=== PATIENT | female | born 1990 | race Caucasian/White ===

== ENCOUNTER → 2016-07-27 | Outpatient (CLI) | payer OTHER ==
[~2016-07-27] MED LIST: /ESCI20TA; ABIL5TAB5 PO; ALBU17IN INH; AMBI10TA PO; AMBIEN; ATIV1TAB7 PO; CELE100C; CELE20TA PO; DEPLIN; EFFE75CA75; HYDROXYZINE; KLON0.5T; LEXAPRO; LITH300C PO; MELO7.5T6 PO; PERCOCET PO; PRISTIQ; RISP1TAB41 PO; TRAZODONE; VICO5TAB; VIST50CA; [UNRECOGNIZED DRUG - CODE]; no home meds
== END ==
LOC: M WUC 14:48
PROVIDERS: ATTEND Nurse Practitioner Family
DX: F31.9 Bipolar disorder, unspecified (principal)

== ENCOUNTER → 2016-08-06 | Outpatient (CLI) | payer OTHER | LOC: M LAB 17:10 | PROVIDERS: ATTEND Nurse Practitioner Family | DX: F31.9 Bipolar disorder, unspecified (principal) ==

== ENCOUNTER 2016-10-03 19:25 | Emergency (ER) | payer OTHER ==
[~2016-10-03] VITALS: Ht 157.5 cm; Wt 61.2 kg
[2016-10-03] MEDS ORDERED: CETI10TA PO (19:59)
[2016-10-03] MEDS ORDERED: LORA1TAB12 PO (19:59)
[2016-10-03] MEDS ORDERED: ADV100INH PO (19:59)
[2016-10-03 22:40] VITALS: BP 129/85
[2016-10-03] MEDS ORDERED: PERC5TAB6 PO (23:00)
[2016-10-03] MEDS ORDERED: PERCOCET 5MG/325MG TAB PO ONE (23:00)
== END 2016-10-03 23:11 | disposition home or self-care (01) ==
LOC: M ED 21:17
DX: K08.89 Other specified disorders of teeth and supporting structures (principal); F43.10 Post-traumatic stress disorder, unspecified; F33.9 Major depressive disorder, recurrent, unspecified; G47.00 Insomnia, unspecified; Z79.899 Other long term (current) drug therapy; Z88.8 Allergy status to other drugs, medicaments and biological substances; J30.89 Other allergic rhinitis

== ENCOUNTER → 2017-02-07 | Outpatient (CLI) | payer OTHER ==
[~2017-02-07] MED LIST changes: +ABIL1TAB11 PO; -ABIL5TAB5 PO; +ADV100INH PO; +ALBU83IN INH; +AMOX500C PO; +CETI10TA PO; +FLON1SPR; +HYDRO50TAB PO; +IBUP80TA PO; +LITH150C PO; +LORA1TAB12 PO; -MELO7.5T6 PO; +MELO7.5T7 PO; +MONT10TA2 PO; +PERC5TAB12 PO; -RISP1TAB41 PO; +RISP1TAB42 PO
[2017-02-07 20:26] LABS: LITHIUM LEVEL < 0.20 MEQ/L (0.60-1.20)
== END ==
LOC: M ADAMS 18:25
PROVIDERS: ATTEND Psychiatry & Neurology Psychiatry
DX: Z51.81 Encounter for therapeutic drug level monitoring (principal); Z79.899 Other long term (current) drug therapy; F43.10 Post-traumatic stress disorder, unspecified

== ENCOUNTER 2017-02-10 21:42 | Inpatient (IN) | payer OTHER ==
[~2017-02-10] VITALS: Ht 157.5 cm; Wt 59.0 kg
[~2017-02-10 21:42] MED LIST changes: -ALBU83IN INH; -AMOX500C PO; -FLON1SPR; -HYDRO50TAB PO; -IBUP80TA PO; -LITH150C PO; -MONT10TA2 PO
[2017-02-10] MEDS ORDERED: LITH150C PO (22:08)
[2017-02-10] MEDS ORDERED: ALBU83IN INH (22:08)
[2017-02-10 23:06] LABS: MEAN CORPUSCULAR HEMOGLOBIN 29.5 pg (27.0-33.0); MEAN CORPUSCULAR HGB CONC 34.1 g/dl (32.0-36.5); MEAN CORPUSCULAR VOLUME 86.4 fl (80.0-96.0); WHITE BLOOD COUNT 6.7 K/mm3 (4.0-10.0)
[2017-02-10 23:22] LABS: METHADONE URINE NEGATIVE (NEGATIVE)
[2017-02-10 23:23] LABS: ALBUMIN 4.3 GM/DL (3.2-5.2); ALBUMIN/GLOBULIN RATIO 1.23 (1.00-1.93); ALKALINE PHOSPHATASE 69 U/L (45-117); ALT/SGPT 22 U/L (12-78); ANION GAP 9 MEQ/L (8-16); AST/SGOT 17 U/L (15-37); BILIRUBIN,DIRECT 0.3 MG/DL (0.0-0.2); BLOOD UREA NITROGEN 9 MG/DL (7-18); CALCIUM LEVEL 9.2 MG/DL (8.5-10.1); CARBON DIOXIDE LEVEL 26 MEQ/L (21-32); CHLORIDE LEVEL 107 MEQ/L (98-107); CREATININE FOR GFR 1.02 MG/DL (0.55-1.02); GLOMERULAR FILTRATION RATE > 60.0 (>60); GLUCOSE, FASTING 117 MG/DL (70-105); POTASSIUM SERUM 3.6 MEQ/L (3.5-5.1); SODIUM LEVEL 142 MEQ/L (136-145); TOTAL PROTEIN 7.8 GM/DL (6.4-8.2)
[2017-02-11] MEDS ORDERED: FLON1SPR (00:09)
[2017-02-11] MEDS ORDERED: LITH300C PO (00:09)
[2017-02-11] MEDS ORDERED: MELO7.5T7 PO (00:09)
[2017-02-11] MEDS ORDERED: MONT10TA2 PO (00:09)
[2017-02-11] MEDS ORDERED: ALBU17IN INH (00:10)
[2017-02-11] MEDS ORDERED: traZODone 50 MG TAB PO PRN (00:45)
[2017-02-11] MEDS ORDERED: MOM 30ML SUSPENSION UDC PO PRN (00:45)
[2017-02-11] MEDS ORDERED: zolPIDEM TARTRATE 5 MG TAB PO PRN (00:45)
[2017-02-11] MEDS ORDERED: LORazepam 1 MG TAB PO PRN (00:45)
[2017-02-11] MEDS ORDERED: HALOPERIDOL 5 MG TAB PO PRN (00:45)
[2017-02-11] MEDS ORDERED: MAALOX 30 ML SUSP *UDC PO PRN (00:45)
[2017-02-11] MEDS ORDERED: ALBUTEROL 90 MCG/ACT 8GM HFA INHALER INH PRN (01:00)
[2017-02-11] MEDS ORDERED: ALBUTEROL SULFATE 2.5 MG/0.5 ML INH NEB SOLN NEB PRN (01:00)
[2017-02-11 01:25] VITALS: BP 112/63
[2017-02-11] MEDS: ACETAMINOPHEN TAB 650MG DOSE (2X325MG) PO PRN ×2 (03:05→14:25)
[2017-02-11 07:09] VITALS: BP 107/61
[2017-02-11] MEDS: LITHIUM CARBONATE 300 MG CAP PO SCH ×2 (08:04→21:21)
[2017-02-11] MEDS: NYSTATIN 500,000 U/5 ML SUSP UDC PO SCH ×4 (09:00→21:00)
--- NOTE | 2017-02-11 09:35 | HPEPDOC ---
Medical History and Physical Date of Admission Feb 11, 2017 at 00:38 History and Physical PCP: Jaqueline Valentine NP Attending: Dr Uribe HPI: 26yoF admitted to [facility] for Bipolar disorder, being medically examined today. No acute medical complaints today. Denies any fevers, chills, weakness, fatigue, ALCAR[place], CP, SOB, cough, palpitations, abdominal pain, N/V/D or changes in bowel or bladder habits. PMHx: Depression Anxiety PTSD bipolar disorder OA/ Chronic LBP. Asthma Allergic rhinitis Left submandibular node enlargement. Excision left cervical node 05/23. Reactive node. PSHX: [place] teeth extraction Hx of 05/23 excision left cervical node. Reactive node. SOCHX: Resides in: [facility] Marital Status: Single Kids: 0 Employment: Unemployed Smoking: Denies ETOH: less than 3 drinks per week Illicit Drugs: marijuana nightly. H/O cocaine. IV Drug Use: Denies Tattoos done unprofessionally: Denies FAMHX: Mother: Alive with COPD and HTN Father: Biological father Unknown Siblings: Alive, unknown Unexpected deaths due to medical reasons: None. ROS: As noted in HPI, otherwise 10pt ROS of systems reviewed and remarkable for LMP . PE: GEN: 26yoF, appears stated age. Well-nourished, well developed. No acute distress. Alert and oriented x 3. Pleasant, interactive. HEENT: Normocephalic, atraumatic. Pupils are equal, round, and reactive to light. Extraocular movements are intact. No nystagmus appreciated. Sclera are nonicteric. Conjunctiva without injection. Nose midline. No facial asymmetry. Moist mucous membranes with white exudate noted, also on tongue. Dentition fair. Pharynx pink and moist. Neck supple, trachea midline. No thyromegaly appreciated. CHEST: Regular rate and rhythm, +S1, +S2. LUNGS: Clear to auscultation bilaterally. No wheezes, rales, or rhonchi. Breathing appears symmetric and easy. Patient is speaking in full sentences. No accessory muscle use. ABD: Round, soft, non-tender, non-distended. +Bowel sounds throughout. No rebound or guarding. No costovertebral angle tenderness. EXT: Pulses 2+ bilaterally dorsalis pedis and radial. No lower extremity edema appreciated. SKIN: [place], dry, warm. Capillary refill <2sec. No rashes. NEURO: Alert and oriented x 3. Cranial nerves III-XII are intact. No focal deficits appreciated. EKG: pending. A&P: 26yoF admitted to [facility] for bipolar disorder. 1. Psych. Plan per Psychiatry. EKG on file. 2. Allergic rhinitis. Continue Flonase daily. 3. Chronic LBP. Continue Mobic 7.5 mg daily. 4. Follow up PCP at discharge. 5. Substance abuse. Management as per psychiatry. 6. Asthma. Continue Advair. Continue singulair 10 mg daily. Continue albuterol as needed. 7. Oral candidiasis. Nystatin SS QID x 10 days. Ensure Pt rinses mouth after using Advair. 8. Vannessa FIGUEROA present throughout exam. Vital Signs Vital Signs Date Time Temp Pulse Resp B/P (MAP) Pulse Ox O2 Delivery O2 Flow Rate FiO2 02/11/17 07:09 97.6 61 18 107/61 (76) Room Air 02/11/17 01:25 96 Laboratory Data Labs 24H Laboratory Tests 2 02/10/17 22:19: Anion Gap 9, Glomerular Filtration Rate > 60.0, Calcium Level 9.2, Aspartate Amino Transf (AST/SGOT) 17, Alanine Aminotransferase (ALT/SGPT) 22, Alkaline Phosphatase 69, Total Bilirubin 1.0, Direct Bilirubin 0.3H, Total Protein 7.8, Albumin 4.3, Albumin/Globulin Ratio 1.23, Thyroid Stimulating Hormone (TSH) 0.539, Salicylates Level < 1.7L, Urine Amphetamines Screen NEGATIVE, Urine Benzodiazepines Screen NEGATIVE, Urine Opiates Screen NEGATIVE, Urine Methadone Screen NEGATIVE, Acetaminophen Level < 2.0L, Urine Barbiturates Screen NEGATIVE , Urine Phencyclidine Screen NEGATIVE, [place] Level 0.91, Urine Cocaine Metabolite Screen POSITIVEH, Urine Cannabinoids Screen POSITIVEH, Ethyl Alcohol Level < 0.003 CBC/BMP Laboratory Tests 02/10/17 22:19 Red Blood Count 4.70, Mean Corpuscular Volume 86.4, Mean Corpuscular Hemoglobin 29.5, Mean Corpuscular Hemoglobin Concent 34.1, Red Cell Distribution Width 13.0 Home Medications Scheduled (Flonase Allergy Relief) 50 Mcg/Act Spr, 1 SPRAY NA DAILY [place] Carbonate ([place] Carbonate) 150 Mg Cap, 150 MG PO DAILY TAKES IN AFTERNOON AROUND 2PM [place] Carbonate ([place] Carbonate) 300 Mg Cap, 300 MG PO BID Lorazepam (Lorazepam) 1 Mg Tab, 1 MG PO BID TAKES 2ND DOSE IN AFTERNOON AROUND 2 PM Meloxicam (Meloxicam) 7.5 Mg Tab, 7.5 MG PO DAILY Montelukast Sodium (Montelukast Sodium) 10 Mg Tab, 10 MG PO DAILY Salmeterol/Fluticasone (Advair Diskus 100-50 Mcg/Dose) 28 Puff/Inhaler Aerp, 1 PUFF PO BID Zolpidem Tartrate (Ambien) 10 Mg Tab, 10 MG PO QHS Scheduled PRN Albuterol Sulfate (Albuterol Sulfate) 2.5 Mg/3 Ml Nebu, 1 VIAL INH QID PRN for SHORTNESS OF BREATH Albuterol Sulfate (Ventolin Hfa) 200 Puff/8 Gm Aers, 2 PUFF INH Q4H PRN for SHORTNESS OF BREATH Allergies Coded Allergies: Ambrosia Artemisiifolia (Ragweed) (Verified Allergy, Unknown, 10/06/12) HAY FEVER (Verified Allergy, Unknown, 04/10/08) No Known Drug Allergy (Verified Allergy, Unknown, 10/06/12) Sodium Hypochlorite (Verified Adverse Reaction, Intermediate, pt allergic to bleach, 01/18/15) Renata Cavanaugh Feb 11, 2017 09:35
[2017-02-11] MEDS: MELOXICAM (MOBIC) 7.5 MG TAB PO SCH (11:04)
[2017-02-11] MEDS: MONTELUKAST 10 MG TAB PO SCH (11:04)
[2017-02-11] MEDS: ADVAIR HFA 45/21MCG INHALER INH SCH ×2 (11:05→21:00)
[2017-02-11] MEDS: FLUTICASONE PROP 0.05% NASAL SPRAY 16 GM (FLONASE) SCH (11:05)
--- NOTE | 2017-02-11 11:05 | MHHPEPDOC ---
[facility] History & Physical History and Physical DATE OF ADMISSION: Feb 11, 2017 at 00:38 LEGAL STATUS AT ADMISSION: 9.39 CHIEF COMPLAINT: presented on her own to ED stating " I just lost hope. I don't know if there is anything for me anymore." Identifies several interpersonal stressors including of Boyfriends uncle, argument with BF. HISTORY OF THE PRESENT ILLNESS: Patient is a 26-year-old female, who was admitted last night after having an argument with her Boyfriend and his mother made her leave. She had no where to go. She started to think of suicide and came to the ER. She is a patient of Dr. Aldana's at [facility]. Pt was interviewed for the purpose of completing H & P. When she was told she would be prescribed controlled substance while on the unit she became belligerent and rude and refused to participate in history taking. Since she was negative for BNZ on admission and she insists she was taking Ativan and Ambien as prescribed she creates a spectrum of uncertainty that she is telling the trough about taking her medications. She is also positive for Cocaine, which does not have a false positive and she insists she did not use cocaine either. She does admit to using cannabis. Pt reports current stressors are the argument with BF, the of BF's Uncle recently, and the of her cousins still-borne baby. The family is very upset over this loss. PSYCHIATRIC REVIEW OF SYSTEMS: Affective: irritable. Anxiety: moderate. Trauma: "all kinds" per patient. Psychosis: none Personally:rude, uncooperative. PAST PSYCHIATRIC HISTORY: Prior Psychiatric Disorder: per chart Depressive disorder NOS, PTSD. Mood disorder NOS, r/o substance induce mood disorder, r/o bipolar disorder, poor compliance with followup, poor compliance with medication, poor coping skills, disharmony with family members. Substance abuse specifically cocaine and marijuana. Outpatient Treatment: [facility], Dr. Aldana has appt 02/21. Suicidal/Self injurious: denies h/o self-mutilation. Psychotropic Medication History: Norphlet, Ativan, Ambien, Atarax, Abilify, Pristiq, Celexa, Risperidone - per chart ALLERGIES: Please see below. FAMILY PSYCHIATRIC HISTORY: Mother and sister with psychiatric history and have been patients at this hospital per chart. SOCIAL HISTORY: Early Relations/development: needs further assessment Sibling order: unknown Paternal relationships: mother A & W Education: unknown Occupational: none Legal: needs further assessment Martial: not Economic: unemployed Supports: boyfriend, several family members, . Abuse/trauma: unclear, states she has child terrazas history but refuses to discuss. SUBSTANCE ABUSE HISTORY: toxicology is + for cocaine, (which pt disputes) and cannabis which pt readily admits to using. PAST MEDICAL/SURGICAL HISTORY: OA/ Chronic LBP. Asthma Allergic rhinitis Left submandibular node enlargement. Excision left cervical node 05/23. Reactive node. PSHX: [place] teeth extraction Hx of 05/23 excision left cervical node. Reactive node. VITAL SIGNS: Temperature 97.6, pulse 61, respiratory rate 18, blood pressure 107/61 , pulse oximetry 96% on room air. MENTAL STATUS EXAMINATION: General appearance: Patient is a 26-year old female, who is dressed in hospital attire, attractive, petite in stature, uncooperative and rude. Speech: spontaneous Thought processes: goal directed Thought content: appropriate Abstract reasoning and computation: need further assessment. Description of associations: needs further assessment. Description of abnormal or psychotic thoughts: no psychotic symptoms illicited, no delusions, denies current thoughts of suicide. Judgment: poor. Insight: poor Orientation: well oriented to person, time, place and situation. Recent and remote memory: good. Attention span and concentration: adequate. Fund of knowledge: full. Mood: irritable Affect: congruent DIAGNOSES: 1. bipolar I disorder, current episode depressed 2. substance abuse, cocaine and cannabis 3. Adhd by history 4. substance induced mood disorder-anxiety ASSESSMENT:pt reports her lithium was recently increased to 750 mg daily. She feels the lithium has been helpful to her. Norphlet level is 0.91 on admission. Bilirubin slightly elevated, glucose elevated.[facility] does show regular prescriptions for Ativan 1 mg bid and zolpidem 10 mg at hs over the past year and more. It is unclear if her providers are aware she is abusing cocaine and cannabis while being prescribed this medication. When pt was admitted about a year ago in 2015 she was also denied controlled substances by DRS. Zamora and Isabela. During her admission in January of 2015 Dr. Reynolds prescribed Ativan 1 mg bid for anxiety and zolpidem 10 mg for insomnia related to PTSD nightmares/symptoms. At that time the pat was also using cocaine and cannabis and was discharged to her homes. they were planning to move to [place] and follow up care was being arranged in [place] for [place]. She was to remain drug free after discharge. Dr. Reynolds 's history states pt refused to discuss her PTSD with her. Pt also refused to discuss it this morning with senior grant writer. On this admission in 2014 she refused to participate in the initial interview similar to the way she presents today. Today patient exhibits poor impulse control, poor coping mechanisms, inability to communicate therapeutically or according to social norms. She started the interview by commenting on the mechanics butt who is installing wires in the ceiling. According to the chart the patient has a poor h/o follow up with outpatient treatment and compliance with prescriptions. additional assessment will be provided once patient is able to provide additional information or becomes more socially appropriate and can discuss her situation and needs. She indicates she needs housing and when told that her failure to cooperate with interview may affect out ability to help her with housing she twists this into meaning we are refusing to help her with housing. She starts to yell and leaves the room at that time, going to her room and slamming the door. Patient does admit she was not taking lithium as prescribed lately since arguing with boyfriend. She insists she was taking Ambien and Ativan yet none showed up in her system. PROBLEM LIST: 1. ineffective coping 2. substance abuse 3. risk for suicide INITIAL TREATMENT PLAN: 1. Patient was admitted on a 9.39 2. Complete history was obtained. 3. With patients permission, family will be contacted and database will be expanded. 4. Patients medication regimen will be reviewed and changed accordingly. 5. Patient will be provided with protected environment. 6. Patient will be treated with individual, group, and milieu therapies. 7. Patient will receive supportive psych-education. 8. Discharge planning will commence immediately. 9. Outpatient follow-up treatment will be strongly recommended. 10. The initial treatment plan will focus initially on: see problem list ESTIMATED LENGTH OF STAY: 5-7 DAYS. TIME SPENT COUNSELING AND COORDINATING INITIAL CARE: 50 minutes. Laboratory Data 24H Labs Laboratory Tests 2 02/10/17 22:19: Anion Gap 9, Glomerular Filtration Rate > 60.0, Calcium Level 9.2, Aspartate Amino Transf (AST/SGOT) 17, Alanine Aminotransferase (ALT/SGPT) 22, Alkaline Phosphatase 69, Total Bilirubin 1.0, Direct Bilirubin 0.3H, Total Protein 7.8, Albumin 4.3, Albumin/Globulin Ratio 1.23, Thyroid Stimulating Hormone (TSH) 0.539, Salicylates Level < 1.7L, Urine Amphetamines Screen NEGATIVE, Urine Benzodiazepines Screen NEGATIVE, Urine Opiates Screen NEGATIVE, Urine Methadone Screen NEGATIVE, Acetaminophen Level < 2.0L, Urine Barbiturates Screen NEGATIVE , Urine Phencyclidine Screen NEGATIVE, [place] Level 0.91, Urine Cocaine Metabolite Screen POSITIVEH, Urine Cannabinoids Screen POSITIVEH, Ethyl Alcohol Level < 0.003 CBC/BMP Laboratory Tests 02/10/17 22:19 Red Blood Count 4.70, Mean Corpuscular Volume 86.4, Mean Corpuscular Hemoglobin 29.5, Mean Corpuscular Hemoglobin Concent 34.1, Red Cell Distribution Width 13.0 Medications Scheduled (Flonase Allergy Relief) 50 Mcg/Act Spr, 1 SPRAY NA DAILY, (Reported) [place] Carbonate ([place] Carbonate) 150 Mg Cap, 150 MG PO DAILY, (Reported) TAKES IN AFTERNOON AROUND 2PM [place] Carbonate ([place] Carbonate) 300 Mg Cap, 300 MG PO BID, (Reported) Lorazepam (Lorazepam) 1 Mg Tab, 1 MG PO BID, (Reported) TAKES 2ND DOSE IN AFTERNOON AROUND 2 PM Meloxicam (Meloxicam) 7.5 Mg Tab, 7.5 MG PO DAILY, (Reported) Montelukast Sodium (Montelukast Sodium) 10 Mg Tab, 10 MG PO DAILY, (Reported) Salmeterol/Fluticasone (Advair Diskus 100-50 Mcg/Dose) 28 Puff/Inhaler Aerp, 1 PUFF PO BID, (Reported) Zolpidem Tartrate (Ambien) 10 Mg Tab, 10 MG PO QHS, (Reported) Scheduled PRN Albuterol Sulfate (Albuterol Sulfate) 2.5 Mg/3 Ml Nebu, 1 VIAL INH QID PRN for SHORTNESS OF BREATH, (Reported) Albuterol Sulfate (Ventolin Hfa) 200 Puff/8 Gm Aers, 2 PUFF INH Q4H PRN for SHORTNESS OF BREATH, (Reported) Allergies Coded Allergies: Ambrosia Artemisiifolia (Ragweed) (Verified Allergy, Unknown, 10/06/12) HAY FEVER (Verified Allergy, Unknown, 04/10/08) No Known Drug Allergy (Verified Allergy, Unknown, 10/06/12) Sodium Hypochlorite (Verified Adverse Reaction, Intermediate, pt allergic to bleach, 01/18/15) Melanie Romero Feb 11, 2017 11:05
[2017-02-11] MEDS: hydrOXYzine 50 MG TAB PO PRN (13:35)
[2017-02-11] MEDS: LITHIUM CARBONATE 150 MG CAP PO SCH (15:12)
[2017-02-11 18:30] VITALS: BP 118/65
[2017-02-11] MEDS ORDERED: hydrOXYzine 50 MG TAB PO PRN (21:00)
[2017-02-12 06:51] VITALS: BP 105/60
[2017-02-12] MEDS: MONTELUKAST 10 MG TAB PO SCH (08:20)
[2017-02-12] MEDS: ADVAIR HFA 45/21MCG INHALER INH SCH (08:20)
[2017-02-12] MEDS: FLUTICASONE PROP 0.05% NASAL SPRAY 16 GM (FLONASE) SCH (08:20)
[2017-02-12] MEDS: MELOXICAM (MOBIC) 7.5 MG TAB PO SCH ×2 (08:20→10:02)
[2017-02-12] MEDS: LITHIUM CARBONATE 300 MG CAP PO SCH (08:20)
[2017-02-12] MEDS: NYSTATIN 500,000 U/5 ML SUSP UDC PO SCH ×3 (08:21→20:27)
[2017-02-12] MEDS: ACETAMINOPHEN TAB 650MG DOSE (2X325MG) PO PRN (09:02)
[2017-02-12] MEDS: hydrOXYzine 50 MG TAB PO PRN (09:43)
[2017-02-12] MEDS ORDERED: HYDRO50TAB PO (14:30)
[2017-02-12] MEDS: LITHIUM CARBONATE 150 MG CAP PO SCH (14:51)
--- NOTE | 2017-02-12 14:53 | MHDSPDOC ---
[facility] Discharge Summary Discharge Summary DATE OF ADMISSION: Feb 11, 2017 at 00:38 DATE OF DISCHARGE: 02/12/17 DISCHARGE DIAGNOSES: Stimulant, opiate, sedative dependency chronic Borderline personality disorder Substance induced Anxiety disorder REASON FOR ADMISSION: pt had argument with boyfriend. Boyfriends mother owns house and told pt to leave. Pt had no where to go, had suicidal thoughts and presented on her own accord to the ED at our hospital. CONSULTANTS INVOLVED:medicine, psychiatry TREATMENT AND PROGRESS ON THE UNIT : pt refused to cooperate with H & P by handbook writer. Toxicology shows she was negative for BNZ when I-stop and med reconciliation indicate she is prescribed 2 mg of Ativan a day and 10 mg of Ambien at hs. She was positive for Cocaine. She has a long h/o cocaine abuse. It is assumed she is diverting her prescription medications but she insists she is taking them. She indicated her lithium was recently increased and that lately she has not been taking her lithium because she has been fighting with her boyfriend. It is not clear what one has to do with the other. When pt was informed she would not received controlled substances during her stay here she became angry and condemning and session was terminated. She refused to answer questions stating "look at my chart". Pt laid in bed on 02/11 citing back pain and being tired due to her late admission. When she was requested to attend group today she declined stating she had pain. She was put on a room restriction hoping she would participate in unit milieu from 9 a.m. to 2:30 p.m but instead she pounded on the desouza, cursed at staff, antagonized staff with request after request. Staff were not able to attend to their other patients due to [facility] constant demand for attention. She remained oppositional with every request. When she was told she could be discharged to her mothers she said she did not want to be forced out and she was assured she was not. Rather if she is not a DTS or DTO there is no need for her to be here if she chooses not to participate in the milieu. Her mother agreed to take her but said "why don't you hold on to her". This would be a violation of patient's rights if there is no psychiatric reason to keep her here. Pt has follow up appts pending next week at [facility]. Their office was contacted regarding pts admission. Hawa made it clear to staff that she is capable of working with DSS on housing. She plans to go there herself and apply for [employer]. She believes she will be in an apartment immediately. We tried to tell her that is unlikely but she would not listen and insisted she was right and that it how it worked for her in the past. HOSPITAL COURSE: unproductive DISCHARGE ASSESSMENT: oppositional female with substance abuse issues who appears to be diverting her prescription medications then complains of anxiety. Pt was provided hydroxyzine pamoate while on the unit for anxiety and insomnia. No c/o insomnia. Sleep evaluation shows she did sleep while here without Ambien. Pt needs additional substance abuse support but refuses our recommendations. Pt would benefit from DBT therapy. MENTAL STATUS EXAMINATION ON DISCHARGE: Patient is a 26-year old female, who is argumentative, hostile and shows limited insight with limited judgment. Speech is spontaneous Language skills are intact Thought processes including: goal directed. Thought content: age appropriate. Abstract reasoning, and computation: good. Description of associations: good. Description of abnormal or psychotic thoughts: denies SI and HI, no psychotic symptoms illicited. Judgment: limited Insight: limited Orientation to person, time, place and surroundings. Recent and remote memory: appears intact. Attention span and concentration: varies. Fund of knowledge: Full. Mood: irritable. Affect: congruent MEDICATIONS ON DISCHARGE: - hydroxyzine for sleep. PLAN/FOLLOWUP ARRANGEMENTS: [facility] 02/21/17. The amount of time spent in the coordination of care for this patient was approximately 29 minutes. Vital Signs/I&Os Vital Signs Date Time Temp Pulse Resp B/P (MAP) Pulse Ox O2 Delivery O2 Flow Rate FiO2 02/12/17 06:51 98.6 59 16 105/60 (75) Room Air 02/11/17 01:25 96 Medications Scheduled (Flonase Allergy Relief) 50 Mcg/Act Spr, 1 SPRAY NA DAILY, (Reported) [place] Carbonate ([place] Carbonate) 150 Mg Cap, 150 MG PO DAILY, (Reported) TAKES IN AFTERNOON AROUND 2PM [place] Carbonate ([place] Carbonate) 300 Mg Cap, 300 MG PO BID, (Reported) Meloxicam (Meloxicam) 7.5 Mg Tab, 7.5 MG PO DAILY, (Reported) Montelukast Sodium (Montelukast Sodium) 10 Mg Tab, 10 MG PO DAILY, (Reported) Salmeterol/Fluticasone (Advair Diskus 100-50 Mcg/Dose) 28 Puff/Inhaler Aerp, 1 PUFF PO BID, (Reported) Scheduled PRN Albuterol Sulfate (Albuterol Sulfate) 2.5 Mg/3 Ml Nebu, 1 VIAL INH QID PRN for SHORTNESS OF BREATH, (Reported) Albuterol Sulfate (Ventolin Hfa) 200 Puff/8 Gm Aers, 2 PUFF INH Q4H PRN for SHORTNESS OF BREATH, (Reported) Hydroxyzine HCl (Hydroxyzine HCl) 50 Mg Tab, 100 MG PO QHS PRN for insomnia for 7 Days, #14 Allergies Coded Allergies: Ambrosia Artemisiifolia (Ragweed) (Verified Allergy, Unknown, 10/06/12) HAY FEVER (Verified Allergy, Unknown, 04/10/08) No Known Drug Allergy (Verified Allergy, Unknown, 10/06/12) Sodium Hypochlorite (Verified Adverse Reaction, Intermediate, pt allergic to bleach, 01/18/15) Melanie Romero Feb 12, 2017 14:53
--- NOTE | 2017-02-13 21:52 | ECGEPIP ---
Stationary ECG Study [facility] Test Date: 2017-02-11 Pat Name: CARLOS RENE Department: Room: [place] [address] Gender: F Forming Press Operator: JUSTICE : 1990 Requested By: Renata Cavanaugh Order Number: [id number] Reading MD: Mc Edwards Measurements Intervals [place] Rate: 53 P: 42 KS: 156 QRS: 58 QRSD: 85 T: 62 QT: 433 QTc: 410 Interpretive Statements SINUS BRADYCARDIA WITH SINUS ARRHYTHMIA COMPARED TO THE LAST 4 TRACINGS IN THE SYSTEM, NO SIGNIFICANT CHANGES Electronically Signed On 02-13-2017 21:52:06 EDT by Mc Edwards
== END 2017-02-12 16:45 | disposition home or self-care (01) | DRG 752 ==
LOC: M ED 21:42 → M ED INP 02-11 00:38 → M PSY 02-11 01:25
PROVIDERS: ADMIT Psychiatry & Neurology Psychiatry; ATTEND Psychiatry & Neurology Psychiatry
DX: F60.3 Borderline personality disorder (principal); F19.94 Other psychoactive substance use, unspecified with psychoactive substance-induced mood disorder; F11.20 Opioid dependence, uncomplicated; F13.20 Sedative, hypnotic or anxiolytic dependence, uncomplicated; F15.20 Other stimulant dependence, uncomplicated; R45.851 Suicidal ideations; Z79.899 Other long term (current) drug therapy; Z88.8 Allergy status to other drugs, medicaments and biological substances; F41.9 Anxiety disorder, unspecified; J45.909 Unspecified asthma, uncomplicated; B37.0 Candidal stomatitis; M19.90 Unspecified osteoarthritis, unspecified site

== ENCOUNTER 2017-04-02 05:07 | Emergency (ER) | payer OTHER ==
[~2017-04-02] VITALS: Ht 157.5 cm; Wt 59.1 kg
[~2017-04-02 05:07] MED LIST changes: +ALBU83IN INH; +FLON1SPR; +HYDRO50TAB PO; +LITH150C PO; +MONT10TA2 PO
[2017-04-02 05:14] VITALS: BP 121/80
[2017-04-02] MEDS ORDERED: AMBI10TA PO (05:19)
[2017-04-02] MEDS ORDERED: IBUP80TA PO (06:24)
[2017-04-02] MEDS ORDERED: AMOX500C PO (06:24)
[2017-04-02] MEDS ORDERED: NORCO 5/325MG TABLET (BULK FOR ED) PO ONE (06:30)
== END 2017-04-02 06:33 | disposition home or self-care (01) ==
LOC: M ED 05:07
DX: R51 Headache (principal); F99 Mental disorder, not otherwise specified; F19.20 Other psychoactive substance dependence, uncomplicated; Z79.899 Other long term (current) drug therapy; F17.210 Nicotine dependence, cigarettes, uncomplicated

== ENCOUNTER 2017-04-18 17:02 | Emergency (ER) | payer OTHER ==
[~2017-04-18] VITALS: Ht 157.5 cm; Wt 61.8 kg
[2017-04-18 17:02] VITALS: BP 121/81
[~2017-04-18 17:02] MED LIST changes: +AMOX500C PO; +IBUP80TA PO
[2017-04-18] MEDS ORDERED: ATIV1TAB7 PO (17:11)
--- NOTE | 2017-04-18 18:01 | REP ---
REASON: Pain after twisting injury. COMPARISON: 10/29/2010. FINDINGS: No acute fracture or destructive osseous lesion. The mortise is intact. Signed by Raphael Leon DO 04/18/2017 07:54 P
== END 2017-04-18 18:40 | disposition home or self-care (01) ==
LOC: M ED 17:02
DX: S93.401A Sprain of unspecified ligament of right ankle, initial encounter (principal); X50.1XXA Overexertion from prolonged static or awkward postures, initial encounter; Y92.410 Unspecified street and highway as the place of occurrence of the external cause; Y93.01 Activity, walking, marching and hiking; Y99.9 Unspecified external cause status; J30.1 Allergic rhinitis due to pollen; Z79.899 Other long term (current) drug therapy; Z91.89 Other specified personal risk factors, not elsewhere classified

== ENCOUNTER → 2017-08-12 | Outpatient (CLI) | payer OTHER ==
[2017-08-12 13:29] LABS: BLOOD UREA NITROGEN 11 MG/DL (7-18)
[2017-08-12 13:29] LABS: CREATININE FOR GFR 0.72 MG/DL (0.55-1.30); GLOMERULAR FILTRATION RATE > 60.0 (>60)
[2017-08-12 13:31] LABS: LITHIUM LEVEL < 0.20 MEQ/L (0.60-1.20)
== END ==
LOC: M LAB 12:16
DX: F31.9 Bipolar disorder, unspecified (principal)
CPT/HCPCS: 82565

== ENCOUNTER → 2017-09-30 | Outpatient (CLI) | payer OTHER ==
[2017-09-30 14:50] LABS: BLOOD UREA NITROGEN 11 MG/DL (7-18)
[2017-09-30 14:50] LABS: CREATININE FOR GFR 0.96 MG/DL (0.55-1.30); GLOMERULAR FILTRATION RATE > 60.0 (>60)
[2017-09-30 14:51] LABS: LITHIUM LEVEL < 0.20 MEQ/L (0.60-1.20)
== END ==
LOC: M LAB 13:45
DX: F31.9 Bipolar disorder, unspecified (principal)
CPT/HCPCS: 82565

== ENCOUNTER 2017-10-18 13:12 | Emergency (ER) | payer OTHER ==
[2017-10-18 14:34] LABS: BASO # 0.1 10^3/uL (0.0-0.2); BASO % 0.4 % (0.0-1.0); HEMATOCRIT 43.3 % (36.0-47.0); HEMOGLOBIN 14.3 g/dl (12.0-15.5); IMMATURE GRANULOCYTE % 0.4 % (0-3.0); LYMPH % 11.8 % (24.0-44.0); MEAN CORPUSCULAR HEMOGLOBIN 28.7 pg (27.0-33.0); MEAN CORPUSCULAR VOLUME 86.9 fl (80.0-96.0); MONO % 5.8 % (0.0-5.0); NEUTROPHILS # 13.7 10^3/uL (1.8-7.7); NEUTROPHILS % 81.6 % (36.0-66.0); PLATELET COUNT, AUTOMATED 237 10^3/uL (150-450); RED BLOOD COUNT 4.98 10^6/uL (4.00-5.40); RED CELL DISTRIBUTION WIDTH 13.9 % (11.5-14.5); WHITE BLOOD COUNT 16.8 10^3/uL (4.0-10.0)
[2017-10-18 14:56] LABS: AMPHETAMINES LEVEL URINE NEGATIVE (NEGATIVE); BARBITURATES URINE NEGATIVE (NEGATIVE); BENZODIAZEPINES URINE NEGATIVE (NEGATIVE); CANNABINOIDS URINE POSITIVE (NEGATIVE); COCAINE METABOLITE URINE NEGATIVE (NEGATIVE); METHADONE URINE NEGATIVE (NEGATIVE); OPIATES URINE NEGATIVE (NEGATIVE); PHENCYCLIDINE URINE NEGATIVE (NEGATIVE)
[2017-10-18 15:04] LABS: ANION GAP 5 MEQ/L (8-16); BLOOD UREA NITROGEN 12 MG/DL (7-18); CARBON DIOXIDE LEVEL 26 MEQ/L (21-32); CHLORIDE LEVEL 109 MEQ/L (98-107); CREATININE FOR GFR 0.83 MG/DL (0.55-1.30); GLOMERULAR FILTRATION RATE > 60.0 (>60); GLUCOSE, FASTING 102 MG/DL (70-100); POTASSIUM SERUM 4.2 MEQ/L (3.5-5.1); SODIUM LEVEL 140 MEQ/L (136-145)
[2017-10-18 15:05] LABS: CALCIUM LEVEL 9.4 MG/DL (8.5-10.1)
[2017-10-18 15:06] LABS: LITHIUM LEVEL 0.51 MEQ/L (0.60-1.20)
== END 2017-10-18 15:36 | disposition home or self-care (01) ==
LOC: M ED 13:12
DX: S06.0X1A Concussion with loss of consciousness of 30 minutes or less, initial encounter (principal); W01.198A Fall on same level from slipping, tripping and stumbling with subsequent striking against other object, initial encounter; Y92.098 Other place in other non-institutional residence as the place of occurrence of the external cause; F19.10 Other psychoactive substance abuse, uncomplicated; M54.9 Dorsalgia, unspecified; G89.29 Other chronic pain; F31.9 Bipolar disorder, unspecified; F41.9 Anxiety disorder, unspecified; F43.10 Post-traumatic stress disorder, unspecified; Z79.899 Other long term (current) drug therapy
CPT/HCPCS: 70450

== ENCOUNTER 2018-01-29 18:48 | Emergency (ER) | payer OTHER | END 2018-01-29 21:04 | disposition home or self-care (01) | LOC: M ED 18:48 | DX: S60.032A Contusion of left middle finger without damage to nail, initial encounter (principal); W22.09XA Striking against other stationary object, initial encounter; Y92.89 Other specified places as the place of occurrence of the external cause; J45.909 Unspecified asthma, uncomplicated; G43.909 Migraine, unspecified, not intractable, without status migrainosus; M54.9 Dorsalgia, unspecified; F31.9 Bipolar disorder, unspecified; F41.9 Anxiety disorder, unspecified; F43.10 Post-traumatic stress disorder, unspecified; G47.00 Insomnia, unspecified; Z79.899 Other long term (current) drug therapy; Z79.51 Long term (current) use of inhaled steroids | CPT/HCPCS: 73140 ==

== ENCOUNTER → 2018-03-20 | Outpatient (CLI) | payer OTHER ==
[2018-03-20 18:25] LABS: CREATININE FOR GFR 0.82 MG/DL (0.55-1.30); GLOMERULAR FILTRATION RATE > 60.0 (>60); LITHIUM LEVEL 0.85 MEQ/L (0.60-1.20)
[2018-03-20 18:25] LABS: BLOOD UREA NITROGEN 12 MG/DL (7-18)
== END ==
LOC: M LAB 16:08
DX: F31.9 Bipolar disorder, unspecified (principal)
CPT/HCPCS: 82565

== ENCOUNTER 2018-05-31 22:03 | Emergency (ER) | payer OTHER ==
[2018-05-31 23:04] LABS: INFLUENZA A AMPLIFICATION NEGATIVE (NEGATIVE); INFLUENZA B AMPLIFICATION NEGATIVE (NEGATIVE)
== END 2018-05-31 23:35 | disposition home or self-care (01) ==
LOC: M ED 23:35
DX: J02.9 Acute pharyngitis, unspecified (principal); F31.9 Bipolar disorder, unspecified; F43.10 Post-traumatic stress disorder, unspecified; G47.00 Insomnia, unspecified; G43.909 Migraine, unspecified, not intractable, without status migrainosus; Z79.899 Other long term (current) drug therapy
CPT/HCPCS: 87502

== ENCOUNTER 2019-07-31 13:47 | Emergency (ER) | payer OTHER ==
[~2019-07-31] VITALS: Ht 154.9 cm; Wt 50.0 kg
[~2019-07-31 13:47] MED LIST changes: -/ESCI20TA; +HYDR1TAB33 PO; -HYDRO50TAB PO; +LEXA1TAB; +LEXA1TAB2; -LEXAPRO; -LORA1TAB12 PO; +LORA1TAB4; +LORA1TAB4 PO; +MELO15TA28
[2019-07-31] MEDS ORDERED: BENA25CA4 PO (14:14)
[2019-07-31 15:00] LABS: INFLUENZA A AMPLIFICATION NEGATIVE (NEGATIVE); INFLUENZA B AMPLIFICATION POSITIVE (NEGATIVE)
--- NOTE | 2019-07-31 15:18 | REP ---
PA and lateral chest: Comparison is 11/24/2015. The lung shannon are clear. The cardiac size is normal. The mylene, mediastinum, and skeletal structures are unremarkable. Impression: Negative PA and lateral chest. There is no interval change. Electronically Signed by Kevon Jordan MD 07/31/2019 03:10 P
[2019-07-31 15:41] VITALS: BP 118/73
== END 2019-07-31 15:51 | disposition home or self-care (01) ==
LOC: M ED 13:47
DX: J10.1 Influenza due to other identified influenza virus with other respiratory manifestations (principal); Z87.01 Personal history of pneumonia (recurrent); Z79.899 Other long term (current) drug therapy; Z88.8 Allergy status to other drugs, medicaments and biological substances; J30.89 Other allergic rhinitis

== ENCOUNTER 2024-08-30 16:29 | Emergency (ER) | payer MEDICAID, OTHER ==
[~2024-08-30] VITALS: Ht 152.4 cm; Wt 60.5 kg
[~2024-08-30 16:29] MED LIST changes: -ADV100INH PO; +ADVA1AER8 PO; +ALBU2.5V10 INH; -ALBU83IN INH; +BENA25CA4 PO; +LORA1TAB23; +LORA1TAB23 PO; -LORA1TAB4; -LORA1TAB4 PO; -MONT10TA2 PO; +MONT10TA97 PO
[2024-08-30 16:33] VITALS: BP 117/65; TEMP 97.8; O2SAT 97
[2024-08-30] MEDS ORDERED: QUET1TAB17 (17:49)
[2024-08-30] MEDS ORDERED: BUPR1FIL (17:49)
[2024-08-30] MEDS ORDERED: POLY510P14 (17:49)
[2024-08-30] MEDS ORDERED: ACYC1TAB PO (18:10)
== END 2024-08-30 18:29 | disposition home or self-care (01) ==
LOC: M ED 16:29
DX: B00.1 Herpesviral vesicular dermatitis (principal); F41.9 Anxiety disorder, unspecified; F43.10 Post-traumatic stress disorder, unspecified; F32.A Depression, unspecified; F31.9 Bipolar disorder, unspecified; F11.10 Opioid abuse, uncomplicated; Z79.899 Other long term (current) drug therapy

== ENCOUNTER 2024-09-13 13:47 | Emergency (ER) | payer MEDICAID ==
[~2024-09-13] VITALS: Ht 152.4 cm; Wt 63.8 kg
[~2024-09-13 13:47] MED LIST changes: +ACYC1TAB PO; +BUPR1FIL; +POLY510P14; +QUET1TAB17
[2024-09-13] MEDS: ACETAMINOPHEN 325 MG TAB PO ONE (14:33)
[2024-09-13 14:55] LABS: BASO # 0.1 10^3/uL (0.0-0.2); BASO % 0.5 % (0.0-1.0); EOS # 0.2 10^3/uL (0.0-0.5); EOS % 1.8 % (0.0-3.0); HEMATOCRIT 37.3 % (36.0-47.0); HEMOGLOBIN 12.6 g/dl (12.0-15.5); LYMPH # 1.8 10^3/uL (1.5-5.0); LYMPH % 15.3 % (24.0-44.0); MEAN CORPUSCULAR HEMOGLOBIN 28.6 pg (27.0-33.0); MEAN CORPUSCULAR HGB CONC 33.8 g/dl (32.0-36.5); MEAN CORPUSCULAR VOLUME 84.6 fl (80.0-96.0); MONO % 8.8 % (2.0-8.0); NEUTROPHILS # 8.4 10^3/uL (1.5-8.5); NEUTROPHILS % 73.3 % (36.0-66.0); PLATELET COUNT, AUTOMATED 202 10^3/uL (150-450); RED BLOOD COUNT 4.41 10^6/uL (4.00-5.40); WHITE BLOOD COUNT 11.5 10^3/uL (4.0-10.0)
[2024-09-13 15:31] LABS: BLOOD UREA NITROGEN 13 MG/DL (9-23); CALCIUM LEVEL 8.9 MG/DL (8.5-10.1); CARBON DIOXIDE LEVEL 23 MMOL/L (20-31); CHLORIDE LEVEL 108 MMOL/L (98-107); CREATININE FOR GFR 0.68 MG/DL (0.55-1.30); GLOMERULAR FILTRATION RATE > 60.0 (>60); GLUCOSE, FASTING 97 MG/DL (60-100); POTASSIUM SERUM 4.4 MMOL/L (3.5-5.1); SODIUM LEVEL 140 MMOL/L (136-145)
[2024-09-13 18:54] VITALS: BP 114/64; TEMP 97; O2SAT 97
== END 2024-09-13 18:55 | disposition home or self-care (01) ==
LOC: M ED 13:47
DX: B34.9 Viral infection, unspecified (principal); J45.909 Unspecified asthma, uncomplicated; G43.909 Migraine, unspecified, not intractable, without status migrainosus; F51.01 Primary insomnia; F31.9 Bipolar disorder, unspecified; F43.10 Post-traumatic stress disorder, unspecified; Z88.8 Allergy status to other drugs, medicaments and biological substances; Z91.048 Other nonmedicinal substance allergy status; Z79.899 Other long term (current) drug therapy

== ENCOUNTER 2024-09-29 11:15 | Emergency (ER) | payer MEDICAID ==
[~2024-09-29] VITALS: Ht 152.4 cm; Wt 61.9 kg
[2024-09-29 12:01] LABS: BASO # 0.1 10^3/uL (0.0-0.2); BASO % 0.7 % (0.0-1.0); EOS # 0.1 10^3/uL (0.0-0.5); EOS % 0.7 % (0.0-3.0); HEMATOCRIT 43.3 % (36.0-47.0); LYMPH # 0.9 10^3/uL (1.5-5.0); LYMPH % 12.1 % (24.0-44.0); MEAN CORPUSCULAR HEMOGLOBIN 27.9 pg (27.0-33.0); MEAN CORPUSCULAR HGB CONC 32.3 g/dl (32.0-36.5); MEAN CORPUSCULAR VOLUME 86.3 fl (80.0-96.0); MONO # 0.9 10^3/uL (0.0-0.8); MONO % 11.2 % (2.0-8.0); NEUTROPHILS # 5.7 10^3/uL (1.5-8.5); NEUTROPHILS % 74.9 % (36.0-66.0); PLATELET COUNT, AUTOMATED 232 10^3/uL (150-450); RED BLOOD COUNT 5.02 10^6/uL (4.00-5.40); WHITE BLOOD COUNT 7.6 10^3/uL (4.0-10.0)
[2024-09-29 12:15] LABS: BLOOD UREA NITROGEN 15 MG/DL (9-23); CALCIUM LEVEL 9.2 MG/DL (8.5-10.1); CARBON DIOXIDE LEVEL 24 MMOL/L (20-31); CHLORIDE LEVEL 108 MMOL/L (98-107); CREATININE FOR GFR 0.68 MG/DL (0.55-1.30); GLOMERULAR FILTRATION RATE > 60.0 (>60); GLUCOSE, FASTING 83 MG/DL (60-100); POTASSIUM SERUM 4.5 MMOL/L (3.5-5.1); SODIUM LEVEL 141 MMOL/L (136-145)
[2024-09-29 12:18] LABS: HCG, SERUM QUALITATIVE NEGATIVE (NEGATIVE)
[2024-09-29] MEDS: ONDANSETRON 4MG ORAL DISINTEGRATING TAB PO ONE ×2 (17:02→18:30)
[2024-09-29] MEDS ORDERED: ONDA-282 PO (18:28)
[2024-09-29 18:46] VITALS: BP 116/72; TEMP 98.5; O2SAT 98
== END 2024-09-29 18:47 | disposition home or self-care (01) ==
LOC: M ED 11:15
DX: R11.2 Nausea with vomiting, unspecified (principal); R19.7 Diarrhea, unspecified; Z79.899 Other long term (current) drug therapy; Z79.83 Long term (current) use of bisphosphonates; Z88.8 Allergy status to other drugs, medicaments and biological substances; Z91.048 Other nonmedicinal substance allergy status

== ENCOUNTER → 2024-10-22 | Outpatient (REF) | payer MEDICAID ==
[~2024-10-22] MED LIST changes: +ONDA-282 PO
[2024-10-22 14:54] LABS: TOTAL 25(OH) VITAMIN D 20.2 NG/ML (20.0-100.0)
[2024-10-22 14:56] LABS: ALBUMIN 3.7 G/DL (3.2-5.2); ALKALINE PHOSPHATASE 72 U/L (35-104); ALT/SGPT 15 U/L (7.0-40); AST/SGOT 10 U/L (<34); BILIRUBIN,TOTAL 0.4 MG/DL (0.3-1.2); BLOOD UREA NITROGEN 9 MG/DL (9-23); CALCIUM LEVEL 8.9 MG/DL (8.5-10.1); CARBON DIOXIDE LEVEL 28 MMOL/L (20-31); CHLORIDE LEVEL 107 MMOL/L (98-107); CHOLESTEROL LEVEL 161 MG/DL (<200); CHOLESTEROL RISK RATIO 3.16 (<5); CREATININE FOR GFR 0.58 MG/DL (0.55-1.30); GLOMERULAR FILTRATION RATE > 90.0 (>60); GLUCOSE, FASTING 82 MG/DL (60-100); HDL CHOLESTEROL 50.9 MG/DL (>40); LDL CHOLESTEROL 95.5 MG/DL (<100); NON-HDL-C 110.1 MG/DL; POTASSIUM SERUM 3.8 MMOL/L (3.5-5.1); SODIUM LEVEL 139 MMOL/L (136-145); TOTAL PROTEIN 6.7 G/DL (5.7-8.2); TRIGLYCERIDES LEVEL 73 MG/DL (<150)
== END ==
LOC: M LAB REF 13:36
PROVIDERS: ATTEND Nurse Practitioner Family
DX: E66.3 Overweight (principal); E55.9 Vitamin D deficiency, unspecified; Z11.9 Encounter for screening for infectious and parasitic diseases, unspecified

== ENCOUNTER 2025-04-17 13:57 | Emergency (ER) | payer MEDICAID ==
[~2025-04-17] VITALS: Ht 152.4 cm; Wt 62.9 kg
[~2025-04-17 13:57] MED LIST changes: +ACYC-438 PO; -ACYC1TAB PO; -AMBI10TA PO; +ZOLP-533 PO
[2025-04-17 14:01] VITALS: TEMP 97
[2025-04-17 15:12] LABS: APPEARANCE, URINE CLEAR (CLEAR); BACTERIA, URINE AUTO 2+ (NEGATIVE); BILIRUBIN, URINE AUTO NEGATIVE (NEGATIVE); BLOOD, URINE BLOOD NEGATIVE (NEGATIVE); GLUCOSE, URINE (UA) AUTO NEGATIVE (NEGATIVE); KETONE, URINE AUTO NEGATIVE (NEGATIVE); LEUKOCYTE ESTERASE, URINE AUTO NEGATIVE (NEGATIVE); MUCUS, URINE SMALL (NEGATIVE); NITRITE, URINE AUTO NEGATIVE (NEGATIVE); PROTEIN, URINE AUTO NEGATIVE (NEGATIVE); RBC, URINE AUTO 0 /HPF (0-3); SPECIFIC GRAVITY URINE AUTO 1.010 (1.002-1.035); SQUAMOUS EPITHELIAL CELL UR AU 3 /HPF (0-6); UROBILINOGEN, URINE AUTO 0.2 mg/dL (0.0-2.0); WBC, URINE AUTO 0 /HPF (0-3)
[2025-04-17 15:13] LABS: URINE PREG TEST POSITIVE (NEGATIVE)
[2025-04-17 15:33] LABS: BASO # 0.1 10^3/uL (0.0-0.2); BASO % 1.0 % (0.0-1.0); EOS # 0.1 10^3/uL (0.0-0.5); EOS % 2.3 % (0.0-3.0); LYMPH # 1.5 10^3/uL (1.5-5.0); LYMPH % 24.8 % (24.0-44.0); MONO # 0.5 10^3/uL (0.0-0.8); MONO % 8.1 % (2.0-8.0); NEUTROPHILS # 3.8 10^3/uL (1.5-8.5); NEUTROPHILS % 63.6 % (36.0-66.0); PLATELET COUNT, AUTOMATED 206 10^3/uL (150-450)
[2025-04-17 16:02] LABS: ALT/SGPT 44 U/L (7.0-40); AST/SGOT 28 U/L (<34); CALCIUM LEVEL 9.1 MG/DL (8.5-10.1); CARBON DIOXIDE LEVEL 24 MMOL/L (20-31); CHLORIDE LEVEL 106 MMOL/L (98-107); CREATININE FOR GFR 0.67 MG/DL (0.55-1.30); GLOMERULAR FILTRATION RATE > 90.0 (>60); POTASSIUM SERUM 4.7 MMOL/L (3.5-5.1); SODIUM LEVEL 139 MMOL/L (136-145)
[2025-04-17 16:06] LABS: HCG, SERUM QUALITATIVE POSITIVE (NEGATIVE)
[2025-04-17 16:24] LABS: HCG, SERUM QUANTITATIVE 1662.2 MIU/ML (<4.2)
[2025-04-17] MEDS: ACETAMINOPHEN *IV* 1,000 MG in IV 1 EA IV ONE (16:58)
[2025-04-17] MEDS: ONDANSETRON 4MG 2ML VIAL IV ONE (17:20)
[2025-04-17 19:45] VITALS: BP 126/72; O2SAT 99
[2025-04-17] MEDS ORDERED: CEPH500C PO (19:46)
[2025-04-17] MEDS: CEPHALEXIN 500 MG CAP PO ONE (19:59)
== END 2025-04-17 20:04 | disposition left against medical advice (07) ==
LOC: M ED 13:57
DX: O23.41 Unspecified infection of urinary tract in pregnancy, first trimester (principal); J45.909 Unspecified asthma, uncomplicated; F41.9 Anxiety disorder, unspecified; F31.9 Bipolar disorder, unspecified; Z88.8 Allergy status to other drugs, medicaments and biological substances; Z91.048 Other nonmedicinal substance allergy status; Z79.2 Long term (current) use of antibiotics; Z79.899 Other long term (current) drug therapy; Z87.42 Personal history of other diseases of the female genital tract; Z3A.00 Weeks of gestation of pregnancy not specified; Z53.9 Procedure and treatment not carried out, unspecified reason
CPT/HCPCS: 76801; 76857; 80053; 81001; 83690; 84702; 84703; 85025; 96365; 96366; 96375; 99284; J0131; J2405

== ENCOUNTER → 2025-04-21 | Outpatient (REF) | payer MEDICAID ==
[~2025-04-21] MED LIST changes: +CEPH500C PO
[2025-04-21 13:33] LABS: Trichomonas vaginalis (AMP) NOT DETECTED (NEGATIVE)
[2025-04-21 13:57] LABS: GC DNA AMPLIFICATION NEGATIVE (NEGATIVE)
[2025-04-21 16:43] LABS: HIV 1&2 SCREEN NEGATIVE (NEGATIVE)
[2025-04-21 16:50] LABS: HEPATITIS C VIRUS ABY INDEX < 0.02 INDEX (<0.8)
[2025-04-21 16:52] LABS: HCG, SERUM QUANTITATIVE 6649.9 MIU/ML (<4.2)
== END ==
LOC: M LAB REF 11:35
PROVIDERS: ATTEND Student in an Organized Health Care Education/Training Program
DX: A64 Unspecified sexually transmitted disease (principal); Z32.01 Encounter for pregnancy test, result positive

== ENCOUNTER 2025-06-28 23:47 | Emergency (ER) | payer MEDICAID ==
[~2025-06-28] VITALS: Ht 152.4 cm; Wt 61.3 kg
[2025-06-29] MEDS ORDERED: TRAZ-252 PO (07:10)
[2025-06-29] MEDS ORDERED: QUET100T2 (07:10)
[2025-06-29] MEDS ORDERED: QUET50TA4 (07:10)
[2025-06-29 07:41] VITALS: BP 114/56; TEMP 98.9; O2SAT 97
== END 2025-06-29 07:54 | disposition home or self-care (01) ==
LOC: M ED 23:47
DX: H01.005 Unspecified blepharitis left lower eyelid (principal); G43.909 Migraine, unspecified, not intractable, without status migrainosus; G40.909 Epilepsy, unspecified, not intractable, without status epilepticus; J45.909 Unspecified asthma, uncomplicated; K59.00 Constipation, unspecified; M54.50 Low back pain, unspecified; F19.10 Other psychoactive substance abuse, uncomplicated; F43.10 Post-traumatic stress disorder, unspecified; F31.9 Bipolar disorder, unspecified; Z79.899 Other long term (current) drug therapy; Z79.2 Long term (current) use of antibiotics; Z88.8 Allergy status to other drugs, medicaments and biological substances; Z91.09 Other allergy status, other than to drugs and biological substances